=== PATIENT | male | born 1960 | race Caucasian/White ===

== ENCOUNTER 2017-09-21 07:59 | Emergency (ER) | payer OTHER ==
[~2017-09-21] VITALS: Ht 175.3 cm; Wt 106.1 kg
[~2017-09-21 07:59] MED LIST: AMLODIPINE BESY10 MG PO; ASPIRIN EC81 MG PO; BUPROBAN150 MG PO; FLEXERIL10 MG PO; FLOMAX0.4 MG PO; FOLIC ACID1 MG PO; GABAPENTIN100 MG PO; GLIMEPIRIDE2 MG PO; LISINOPRIL40 MG PO; LOPID600 MG; LOPID600 MG PO; LOVASTATIN20 MG PO; METFORMIN HCL500 MG PO; METOPROLOL SUCC25 MG PO; PRILOSEC20 MG PO; REGLAN10 MG PO; RYBIX ODT50 MG; TRAMADOL HCL50 MG PO; VALIUM5 MG PO
== END 2017-09-21 08:12 | disposition home or self-care (01) ==
LOC: ED 07:59
DX: H66.42 Suppurative otitis media, unspecified, left ear (principal)

== ENCOUNTER 2018-10-09 22:51 | Emergency (ER) | payer OTHER ==
[~2018-10-09] VITALS: Ht 175.3 cm; Wt 104.3 kg
--- OUTSIDE RECORDS SUMMARY | 2018-10-09 22:54 | XMS ---
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 Josue has no Care Guidelines for this patient. Elda VISIT COUNT (12 MO.) 1 [facility] TOTAL 1 NOTE: Visits indicate total known visits. ED/UCC VISIT TRACKING (12 MO.) 10/09/2018 22:53 [facility] [place] TYPE: Emergency COMPLAINT: - LEFT HAND LACERATION INPATIENT VISIT TRACKING (12 MO.) No inpatient visits to display in this time frame [id number]
== END 2018-10-10 01:24 | disposition home or self-care (01) ==
LOC: ED 22:51
DX: S61.412A Laceration without foreign body of left hand, initial encounter (principal); W26.8XXA Contact with other sharp object(s), not elsewhere classified, initial encounter; I10 Essential (primary) hypertension; E11.9 Type 2 diabetes mellitus without complications; F17.200 Nicotine dependence, unspecified, uncomplicated; Z88.8 Allergy status to other drugs, medicaments and biological substances; Z79.899 Other long term (current) drug therapy
CPT/HCPCS: 12002; 90471; 90715; 99282-25

== ENCOUNTER 2021-01-01 00:51 | Emergency (ER) | payer OTHER ==
[~2021-01-01] VITALS: Ht 175.3 cm; Wt 104.3 kg
--- OUTSIDE RECORDS SUMMARY | 2021-01-01 00:54 | XMS ---
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 Josue has no Care Guidelines for this patient. Care History Medical/Surgical 10/11/2018 [facility] - [place] CASE MANAGEMENT REFERRAL MADE- PATIENT DOES NOT HAVE A PCP AND HAS [employer] INSURANCE. E.D. VISIT COUNT (12 MO.) 1 [facility] TOTAL 1 NOTE: Visits indicate total known visits. ED/UCC VISIT TRACKING (12 MO.) 01/01/2021 00:52 [facility] [place] TYPE: Emergency COMPLAINT: - RT SIDE FLANK PAIN INPATIENT VISIT TRACKING (12 MO.) No inpatient visits to display in this time frame [id number]
[2021-01-01] MEDS ORDERED: CARDURA2 MG PO (01:16)
[2021-01-01] MEDS ORDERED: DICLOFENAC SODI75 MG PO (03:59)
== END 2021-01-01 04:24 | disposition home or self-care (01) ==
LOC: ED 00:51
DX: R10.9 Unspecified abdominal pain (principal); I10 Essential (primary) hypertension; E11.9 Type 2 diabetes mellitus without complications; Z87.891 Personal history of nicotine dependence; Z88.8 Allergy status to other drugs, medicaments and biological substances; Z79.899 Other long term (current) drug therapy
CPT/HCPCS: 74176; 80053; 81001; 83690; 85025; 96374; 96375; 99284-25; J1170; J1885; J2405

== ENCOUNTER 2021-02-13 16:23 | Emergency (ER) | payer OTHER ==
[~2021-02-13] VITALS: Ht 175.3 cm; Wt 104.3 kg
[~2021-02-13 16:23] MED LIST changes: +CARDURA2 MG PO; +DICLOFENAC SODI75 MG PO
[2021-02-13] MEDS ORDERED: CEPHALEXIN500 M1 PO (17:16)
== END 2021-02-13 17:25 | disposition home or self-care (01) ==
LOC: ED 16:23
DX: B35.3 Tinea pedis (principal); R23.4 Changes in skin texture; I10 Essential (primary) hypertension; E11.9 Type 2 diabetes mellitus without complications; F17.200 Nicotine dependence, unspecified, uncomplicated; Z88.8 Allergy status to other drugs, medicaments and biological substances; Z79.899 Other long term (current) drug therapy
CPT/HCPCS: 99283

== ENCOUNTER 2021-03-20 15:01 | Emergency (ER) | payer OTHER ==
[~2021-03-20] VITALS: Ht 175.3 cm; Wt 104.3 kg
[~2021-03-20 15:01] MED LIST changes: +CEPHALEXIN500 M1 PO
[2021-03-20] MEDS ORDERED: DOXAZOSIN MESYLA8 MG PO (15:57)
[2021-03-20] MEDS ORDERED: CEPHALEXIN500 M1 PO (16:43)
== END 2021-03-20 17:00 | disposition home or self-care (01) ==
LOC: ED 15:01
PROC: 0HQFXZZ Repair Right Hand Skin, External Approach (ICD-10-PCS; principal; 2021-03-20)
DX: S61.411A Laceration without foreign body of right hand, initial encounter (principal); W22.8XXA Striking against or struck by other objects, initial encounter; I10 Essential (primary) hypertension; E11.9 Type 2 diabetes mellitus without complications; K85.90 Acute pancreatitis without necrosis or infection, unspecified; F17.200 Nicotine dependence, unspecified, uncomplicated; Z88.8 Allergy status to other drugs, medicaments and biological substances; Z79.899 Other long term (current) drug therapy
CPT/HCPCS: 12001; 99282-25

== ENCOUNTER 2021-12-01 10:43 | Emergency (ER) | payer OTHER ==
[~2021-12-01] VITALS: Ht 177.8 cm; Wt 106.6 kg
[~2021-12-01 10:43] MED LIST changes: +DOXAZOSIN MESYLA8 MG PO
[2021-12-01] MEDS ORDERED: INDAPAMIDE1.25 MG PO (11:37)
--- NOTE | 2021-12-04 08:54 | EKG ---
[facility] [address] [facility] [address] [facility] [place] [address] Signed Normal sinus rhythm with sinus arrhythmia Left anterior fascicular block Abnormal ECG No previous ECGs available Confirmed by GINA GIORDANO MD ([id number]) on 12/04/2021 8:54:29 AM Electronically Signed By: GINA GIORDANO MD 12/04/21 0854 PATIENT NAME: CHASE CABRAL KRISTEN Electrocardiogram DATE OF : 62 PHYSICIAN: GINA GIORDANO MD REPORT #: [id number] REPORT IS CONFIDENTIAL AND NOT TO BE RELEASED WITHOUT AUTHORIZATION
== END 2021-12-01 15:38 | disposition home or self-care (01) ==
LOC: ED 10:43
DX: R53.1 Weakness (principal); K29.00 Acute gastritis without bleeding; I10 Essential (primary) hypertension; E11.9 Type 2 diabetes mellitus without complications; F17.200 Nicotine dependence, unspecified, uncomplicated; Z88.8 Allergy status to other drugs, medicaments and biological substances; Z79.899 Other long term (current) drug therapy
CPT/HCPCS: 36415; 71045; 80053; 83735; 84484; 85025; 93005; 93010; 96361; 96374; 99285-25; J2405; J7030

== ENCOUNTER 2021-12-22 14:41 | Emergency (ER) | payer OTHER ==
[~2021-12-22] VITALS: Ht 177.8 cm; Wt 106.6 kg
[~2021-12-22 14:41] MED LIST changes: +INDAPAMIDE1.25 MG PO
--- OUTSIDE RECORDS SUMMARY | 2021-12-22 14:50 | XMS ---
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 Care History Medical/Surgical 01/03/2021 [facility] - Patient is currently established with [facility]. If patient is seen in the ED during business hours. Please contact CHWs at [facility]. Care Recommendation: If this patient has had 5 or more Emergency Department visits in the last 12 months.\T\nbsp; Patient will require education on the scope and purpose of the ED as an acute care provider not a Primary Care Provider and should not be utilized for chronic conditions.\T\nbsp; These are guidelines and the provider should exercise clinical judgment when providing care. E.D. VISIT COUNT (12 MO.) 5 [facility] TOTAL 5 NOTE: Visits indicate total known visits. ED/UCC VISIT TRACKING (12 MO.) 12/22/2021 14:[address] [facility] [place] TYPE: Emergency COMPLAINT: - LT SHOULDER INJ 12/01/2021 10:[address] [facility] [place] TYPE: Emergency COMPLAINT: - N/V, SOB, UPPER CHEST/SHOULDER PAIN, ODD SCENTS DIAGNOSES: - Weakness - Nicotine dependence, unspecified, uncomplicated - Other chest pain - Other terminal operator (current) drug therapy - Allergy status to other drugs, medicaments and biological substances - Type 2 diabetes mellitus without complications - Essential (primary) hypertension - Acute gastritis without bleeding 03/20/2021 15:01 [facility] [place] TYPE: Emergency COMPLAINT: - R HAND LACERATION DIAGNOSES: - Allergy status to other drugs, medicaments and biological substances - Laceration without foreign body of right hand, initial encounter - Essential (primary) hypertension - Other skilled nursing (current) drug therapy - Acute pancreatitis without necrosis or infection, unspecified - Nicotine dependence, unspecified, uncomplicated - Type 2 diabetes mellitus without complications - Striking against or struck by other objects, initial encounter 02/13/2021 16:23 [facility] [place] TYPE: Emergency COMPLAINT: - FEET PAIN/ INJ DIAGNOSES: - Type 2 diabetes mellitus without complications - Essential (primary) hypertension - Changes in skin texture - Allergy status to other drugs, medicaments and biological substances - Nicotine dependence, unspecified, uncomplicated - Other skilled nursing (current) drug therapy - Tinea pedis 01/01/2021 00:52 [facility] [place] TYPE: Emergency COMPLAINT: - RT SIDE FLANK PAIN DIAGNOSES: - Type 2 diabetes mellitus without complications - Essential (primary) hypertension - Allergy status to other drugs, medicaments and biological substances - Personal history of nicotine dependence - Other terminal operator (current) drug therapy - Unspecified abdominal pain INPATIENT VISIT TRACKING (12 MO.) No inpatient visits to display in this time frame [id number]
== END 2021-12-22 16:13 | disposition home or self-care (01) ==
LOC: ED 14:41
DX: S43.402A Unspecified sprain of left shoulder joint, initial encounter (principal); I10 Essential (primary) hypertension; E11.9 Type 2 diabetes mellitus without complications; F17.200 Nicotine dependence, unspecified, uncomplicated; Z88.8 Allergy status to other drugs, medicaments and biological substances; Z79.899 Other long term (current) drug therapy; X50.0XXA Overexertion from strenuous movement or load, initial encounter; Y99.0 Civilian activity done for income or pay
CPT/HCPCS: 73030; 99283-25

== ENCOUNTER 2022-01-09 09:45 | Emergency (ER) | payer OTHER ==
[~2022-01-09] VITALS: Ht 177.8 cm; Wt 106.6 kg
--- OUTSIDE RECORDS SUMMARY | 2022-01-09 09:54 | XMS ---
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 Care History Medical/Surgical 01/03/2021 [facility] - Patient is currently established with [facility]. If patient is seen in the ED during business hours. Please contact CHWs at [facility]. Care Recommendation: If this patient has had [...] care. E.D. VISIT COUNT (12 MO.) 5 [facility] TOTAL 5 NOTE: Visits indicate total known visits. 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 - Civilian activity done for income or pay - Nicotine dependence, unspecified, uncomplicated - Essential (primary) hypertension - Unspecified sprain of left shoulder joint, initial encounter 12/01/2021 10:45 [facility] [place] TYPE: Emergency COMPLAINT: - N/V, SOB, UPPER CHEST/SHOULDER PAIN, ODD SCENTS DIAGNOSES: - Weakness - Nicotine dependence, unspecified, uncomplicated - Other chest pain - Other long wall shear operator (current) drug therapy - Allergy status to other drugs, medicaments and biological substances - Type 2 diabetes mellitus without complications - Essential (primary) hypertension - Acute gastritis without bleeding 03/20/2021 15:01 [facility] [place] TYPE: Emergency COMPLAINT: - R HAND LACERATION DIAGNOSES: - Allergy status to other drugs, medicaments and biological substances - Laceration without foreign body of right hand, initial encounter - Essential (primary) hypertension - Other retirement (current) drug therapy - Acute pancreatitis without necrosis or infection, unspecified - Nicotine dependence, unspecified, uncomplicated - Type 2 diabetes mellitus without complications - Striking against or struck by other objects, initial encounter 02/13/2021 16:23 [facility] [place] TYPE: Emergency COMPLAINT: - FEET PAIN/ INJ DIAGNOSES: - Type 2 diabetes mellitus without complications - Essential (primary) hypertension - Changes in skin texture - Allergy status to other drugs, medicaments and biological substances - Nicotine dependence, unspecified, uncomplicated - Other retirement (current) drug therapy - Tinea pedis INPATIENT VISIT TRACKING (12 MO.) No inpatient visits to display in this time frame [email or web address]
[2022-01-09] MEDS ORDERED: HYDROCODON-ACE1 EA10 PO (12:35)
== END 2022-01-09 12:51 | disposition home or self-care (01) ==
LOC: ED 09:45
DX: M25.512 Pain in left shoulder (principal); I10 Essential (primary) hypertension; E11.9 Type 2 diabetes mellitus without complications; F17.200 Nicotine dependence, unspecified, uncomplicated; Z88.8 Allergy status to other drugs, medicaments and biological substances; Z79.899 Other long term (current) drug therapy; X50.0XXA Overexertion from strenuous movement or load, initial encounter
CPT/HCPCS: 73030; A9270

== ENCOUNTER 2024-11-10 19:34 | Emergency (ER) | payer OTHER ==
[~2024-11-10] VITALS: Ht 175.3 cm; Wt 100.0 kg
[~2024-11-10 19:34] MED LIST changes: +AMLODIPINE BESYL5 MG PO; +HYDROCODON-ACE1 EA10 PO; +MAXITROL EYE DRO5 ML OPTH; +METFORMIN HCL500 M1 PO
[2024-11-10] MEDS ORDERED: DOXAZOSIN MESYLA8 MG PO (21:03)
[2024-11-10 21:48] VITALS: BP 180/97
== END 2024-11-10 21:48 | disposition home or self-care (01) ==
LOC: ED 19:34
DX: S68.121A Partial traumatic metacarpophalangeal amputation of left index finger, initial encounter (principal); I10 Essential (primary) hypertension; E11.9 Type 2 diabetes mellitus without complications; F17.200 Nicotine dependence, unspecified, uncomplicated; Z88.8 Allergy status to other drugs, medicaments and biological substances; Z79.84 Long term (current) use of oral hypoglycemic drugs; Z79.899 Other long term (current) drug therapy; W26.0XXA Contact with knife, initial encounter
CPT/HCPCS: 73140; 99284

== ENCOUNTER 2025-06-22 20:47 | Emergency (ER) | payer OTHER ==
[~2025-06-22] VITALS: Ht 175.3 cm; Wt 100.0 kg
[2025-06-22 21:07] LABS: BASOPHILS 0.6 % (0.2-1.2); EOSINOPHILS 2.9 % (0.8-7.0); LYMPHOCYTES 26.7 % (21.8-53.1); MCH 28.6 PG (25.7-32.2); MCHC 33.0 g/dL (32.3-36.5); MCV 86.6 fL (79.0-92.2); MONOCYTES 7.4 % (5.3-12.2); NEUTROPHILS 61.8 % (34.0-67.9); RBC 4.69 M/uL (4.63-6.08)
[2025-06-22] MEDS ORDERED: SODIUM CHLORIDE 0.9% 1,000 ML IV SCH (21:15)
[2025-06-22 21:21] LABS: ALT (SGPT) 33.0 U/L (14-59); AST (SGOT) 14.0 U/L (15-37); GLOMERULAR FILTRATION RATE,EST 43.0 mL/min (>60); PROTEIN, TOTAL 6.5 g/dL (6.4-8.2); UREA NITROGEN 39.0 mg/dL (7-18)
[2025-06-22 21:57] LABS: BLOOD/HGB, URINE NEGATIVE (Negative); KETONE, URINE NEGATIVE (Negative); LEUK ESTERASE, URINE NEGATIVE (negative); NITRITE, URINE NEGATIVE (negative)
[2025-06-22 22:05] LABS: BACTERIA, URINE NONE SEEN /hpf (negative); CASTS, URINE NONE SEEN \\lpf; CRYSTALS, URINE NONE SEEN (0-1+); EPITHELIAL CELLS, URINE 0 /lpf (0-1+); REFLEX CULTURE, URINE No (No)
[2025-06-22 22:57] VITALS: BP 131/86
--- NOTE | 2025-06-23 11:49 | EKG ---
[facility] [address] [facility] [place] [address] Signed Normal sinus rhythm Left anterior fascicular block Abnormal ECG When compared with ECG of 01-DEC-2021 10:52, No significant change was found Confirmed by Oneil Calzada DO ([id number]) on 06/23/2025 11:48:44 AM Electronically Signed By: ONEIL CALZADA DO 06/23/25 1149 PATIENT NAME: JAKOBNicolleCHASE Electrocardiogram DATE OF : 62 PHYSICIAN: ONEIL CALZADA DO REPORT #: [id number] REPORT IS CONFIDENTIAL AND NOT TO BE RELEASED WITHOUT AUTHORIZATION
== END 2025-06-22 22:59 | disposition home or self-care (01) ==
LOC: ED 20:47
PROVIDERS: Emergency Medicine
DX: R55 Syncope and collapse (principal); I10 Essential (primary) hypertension; E11.9 Type 2 diabetes mellitus without complications; F17.200 Nicotine dependence, unspecified, uncomplicated
CPT/HCPCS: 36415; 51798; 71045; 80053; 81001; 83735; 84484; 85025; 93005; 93010; 99284-25; J7030